=== PATIENT | female | born 1950 ===

== ENCOUNTER → 2022-09-14 | Outpatient (CLI) | payer BC | LOC: LAB 07:26 → PLD 07:26 → LAB SHORT 07:26 | DX: R21 Rash and other nonspecific skin eruption (principal) | CPT/HCPCS: 88312 ==

== ENCOUNTER 2023-12-04 02:53 | Emergency (ER) | payer BC ==
[~2023-12-04] VITALS: Ht 162.6 cm; Wt 72.6 kg
[2023-12-04 03:14] LABS: BASOPHILS ABSOLUTE AUTO 0.06 K/mm3 (0.00-0.23); BASOPHILS PERCENT AUTO 1 % (0-2); EOSINOPHILS ABSOLUTE AUTO 0.21 K/mm3 (0.00-0.68); EOSINOPHILS PERCENT AUTO 2 % (0-6); Hematocrit 43.1 % (33.0-51.0); Hemoglobin 14.5 g/dL (11.5-16.0); IMMATURE GRAN ABSOLUTE AUTO 0.02 K/mm3 (0.00-0.10); IMMATURE GRAN PERCENT AUTO 0 % (0-1); LYMPHOCYTES ABSOLUTE AUTO 2.89 K/mm3 (0.84-5.20); LYMPHOCYTES PERCENT AUTO 33 % (21-46); MONOCYTES ABSOLUTE AUTO 0.78 K/mm3 (0.16-1.47); MONOCYTES PERCENT AUTO 9 % (4-13); Mean Corpuscular HGB 30.1 pg (26.0-34.0); Mean Corpuscular HGB Conc 33.6 g/dL (31.5-36.5); Mean Corpuscular Volume 89 fL (80-100); Mean Platelet Volume 9.7 fL (9.1-12.4); NEUTROPHILS ABSOLUTE AUTO 4.84 K/mm3 (1.96-9.15); NEUTROPHILS PERCENT AUTO 55 % (41-73); Platelet Count 281 K/mm3 (150-400); RDW Coefficient Variation 13.1 % (11.7-14.2); RDW Standard Deviation 43.3 fL (35.1-46.3); Red Blood Cell Count 4.82 M/mm3 (3.80-5.20)
[2023-12-04] MEDS ORDERED: ELIQUIS5 M3 PO (03:23)
[2023-12-04] MEDS ORDERED: DILTIAZEM 24HR180 M3 PO (03:24)
[2023-12-04 03:35] LABS: Albumin, Blood 3.8 g/dL (3.4-5.0); Albumin/Globulin Ratio 1.1 (0.8-1.8); Bilirubin, Total 0.3 mg/dL (0.1-1.0); Bun/Creatinine Ratio 31.7 (12.0-20.0); Calcium, Blood 8.7 mg/dL (8.5-10.1); Creatinine, Blood 0.6 mg/dL (0.40-1.00); Globulin, Blood 3.6 g/dL (2.2-4.0); Magnesium, Blood 2.1 mg/dL (1.6-2.4); Potassium, Blood 3.8 mmol/L (3.5-5.5); Total Protein, Blood 7.4 g/dL (6.4-8.2)
[2023-12-04 04:10] LABS: International Normalized Ratio 0.99; Prothrombin Time Results 10.4 Sec (9.7-11.5)
[2023-12-04 04:30] VITALS: BP 111/79
== END 2023-12-04 04:30 | disposition home or self-care (01) ==
LOC: ER 02:53
PROVIDERS: Emergency Medicine; Internal Medicine
DX: I48.91 Unspecified atrial fibrillation (principal); I48.92 Unspecified atrial flutter; Z79.01 Long term (current) use of anticoagulants; Z79.899 Other long term (current) drug therapy; Z88.7 Allergy status to serum and vaccine; Z88.8 Allergy status to other drugs, medicaments and biological substances
CPT/HCPCS: 71045; 80053; 83735; 83880; 84484; 85025; 85610; 93005; 93010; 96365; 96375; 99284-25; J1160; J3480; J7050

== ENCOUNTER 2025-07-12 00:48 | Day surgery (SDC) | payer BC ==
[~2025-07-12 00:48] MED LIST: DILTIAZEM 24HR180 M3 PO; ELIQUIS5 M3 PO
[2025-07-12] MEDS ORDERED: Cosyntropin 0.25 MG / ML 1ML Vial IM SCH (06:55)
[2025-07-12 08:30] VITALS: BP 138/76
[2025-07-12] MEDS ORDERED: ACYCLOVIR15 GM TOP (09:32)
[2025-07-12] MEDS ORDERED: CALCIPOTRIENE TOP (09:36)
[2025-07-12] MEDS ORDERED: DICLOFENAC SOD100 GM TOP (09:37)
[2025-07-12] MEDS ORDERED: LIDO700A20 TOP (09:39)
[2025-07-12] MEDS ORDERED: CORTISONE60 GM TOP (09:39)
[2025-07-12] MEDS ORDERED: MAGNESIUM OXID500 MG (09:40)
[2025-07-12] MEDS ORDERED: Milk Thistle175 M1 PO (09:40)
[2025-07-12] MEDS ORDERED: VITAMIN D33000 UNIT PO (09:40)
[2025-07-12] MEDS ORDERED: Preservision S1 EACH PO (09:41)
[2025-07-12 10:35] LABS: Anion Gap 6.0 mmol/L (3-11); Blood Urea Nitrogen 10.0 mg/dL (8-24); CO2, Blood 29.0 mmol/L (21-32); Calcium, Blood 8.8 mg/dL (8.5-10.1); Chloride, Blood 104.0 mmol/L (98-108); Creatinine, Blood 0.63 mg/dL (0.40-1.00); Glucose, Blood 101.0 mg/dL (70-99); Potassium, Blood 4.4 mmol/L (3.5-5.5); Sodium, Blood 135.0 mmol/L (136-145)
== END 2025-07-12 09:58 | disposition home or self-care (01) ==
LOC: ATC 00:48
PROVIDERS: Nurse Practitioner Family
DX: E87.1 Hypo-osmolality and hyponatremia (principal); I35.0 Nonrheumatic aortic (valve) stenosis; M85.80 Other specified disorders of bone density and structure, unspecified site; I48.0 Paroxysmal atrial fibrillation; E66.3 Overweight; Z68.29 Body mass index [BMI] 29.0-29.9, adult; Z87.891 Personal history of nicotine dependence; Z79.899 Other long term (current) drug therapy; Z88.8 Allergy status to other drugs, medicaments and biological substances; Z91.048 Other nonmedicinal substance allergy status; Z98.890 Other specified postprocedural states
CPT/HCPCS: 36415; 80048; 80400; 82533; 96372; J0834